=== PATIENT | male | born 1935 | race Two or more races ===

== ENCOUNTER 2020-07-22 07:00 | Day surgery (SDC) | payer OTHER | END 2020-07-22 13:35 | disposition home or self-care (01) | LOC: AMB-ENDOS 07:00 | PROVIDERS: ATTEND Colon & Rectal Surgery | DX: D12.4 Benign neoplasm of descending colon (principal); K64.2 Third degree hemorrhoids; Z20.822 Contact with and (suspected) exposure to COVID-19 ==